=== PATIENT | female | born 1980 | race American Indian/Alaskan Native ===

== ENCOUNTER 2017-10-13 00:24 | Emergency (ER) | payer MEDICAID ==
[2017-10-13 00:56] VITALS: BMI 32.4
[2017-10-13 00:58] VITALS: RESP 14; TEMP 99; O2SAT 100
--- NOTE | 2017-10-13 01:10 | ED PDOC ---
Arrival/HPI - General Chief Complaint: ENT Problem Time Seen by Provider: 10/13/17 00:54 Historian: Patient - History of Present Illness Narrative History of Present Illness (Text): 10/13/17 01:09 36-year-old female presents today with a one-day history of sore throat. States she is having pain in the throat. States she feels as if she is losing her voice. Patient states she's been trying to cough up mucus that everything is dry. Patient states she feels as if her throat is dry. Patient denies sick contacts at home. Patient denies chest pain or shortness of breath. Patient denies cough. Patient states she's having some left ear pain. Patient denies abdominal pain and vomiting or diarrhea. No medications have been taken at home for pain. Patient states she is able to eat and drink but she has pain with swallowing. Patient denies any difficulty breathing or feeling of throat closing. No other complaints. Time/Duration: Other (1 day) Symptom Onset: Gradual Symptom Course: Worsening Quality: Aching, Burning Severity Level: 4 Past Medical History - Provider Review Nursing Documentation Reviewed: Yes - Travel History Have you recently traveled outside [place] w/in the past 3 mons?: No - Infectious Disease Hx of Infectious Diseases: None - Cardiac Hx Cardiac Disorders: No - Pulmonary Hx Respiratory Disorders: No - Neurological Hx Neurological Disorder: No - HEENT Hx HEENT Disorder: No - Renal Hx Renal Disorder: No - Endocrine/Metabolic Hx Endocrine Disorders: No - Hematological/Oncological Hx Blood Disorders: No - Integumentary Hx Dermatological Disorder: No - Musculoskeletal/Rheumatological Hx Musculoskeletal Disorders: No - Gastrointestinal Hx Gastrointestinal Disorders: Yes Hx Gall Bladder Disease: Yes - Genitourinary/Gynecological Hx Genitourinary Disorders: Yes Hx Reproductive Disorders: Yes (ectopic ) - Psychiatric Hx Psychophysiologic Disorder: No Hx Substance Use: No - Surgical History Hx Cholecystectomy: Yes Other/Comment: left fallopian tube removed - Anesthesia Hx Anesthesia: No Hx Anesthesia Reactions: No Hx Malignant Hyperthermia: No Family/Social History - Physician Review Nursing Documentation Reviewed: Yes Family/Social History: Unknown Family HX Smoking Status: Light Smoker < 10 Cigarettes Daily Hx Alcohol Use: Yes Frequency of alcohol use: Socially Hx Substance Use: No Allergies/Home Meds Allergies/Adverse Reactions: Allergies No Known Allergies Allergy (Verified 10/13/17 00:57) Home Medications: Home Meds Medication Instructions Recorded Confirmed Phentermine HCl [Adipex-P] 1 tab PO DAILY 10/02/15 10/02/15 Review of Systems - Review of Systems Constitutional: absent: Fatigue, Fevers ENT: Sore Throat, Other (right ear pain) Respiratory: absent: SOB, Cough Cardiovascular: absent: Chest Pain, Palpitations Gastrointestinal: absent: Abdominal Pain, Nausea, Vomiting Musculoskeletal: absent: Arthralgias Skin: absent: Rash, Pruritis Neurological: absent: Headache, Dizziness Psychiatric: absent: Anxiety, Depression Physical Exam Vital Signs Reviewed: Yes Vital Signs Temp Pulse Resp BP Pulse Ox 10/13/17 00:57 99 F 90 14 122/76 100 Temperature: Afebrile Blood Pressure: Normal Pulse: Regular Respiratory Rate: Normal Appearance: Positive for: Well-Appearing, Non-Toxic, Comfortable Pain Distress: None Mental Status: Positive for: Alert and Oriented X 3 - Systems Exam Head: Present: Atraumatic Conjunctiva: Present: Normal Ears: Present: Normal, NORMAL TM. No: Erythema Mouth: Present: Moist Mucous Membranes, Normal Lips, Normal Tounge, Normal Teeth. No: Drooling, Trismus Pharnyx: Present: ERYTHEMA, TONSILS ENLARGED (minimal bilateral tonsillar enlargement). No: EXUDATE, Peritonsilar Swelling, Uvular Deviation, Muffled/ Hoarse Voice, Strider, Soft Palate/Uvular Edema Nose (External): Present: Atraumatic Nose (Internal): Present: Normal Inspection, Clear Mucous Neck: Present: Normal Range of Motion, Trachea Midline. No: Lymphadenopathy Respiratory/Chest: Present: Clear to Auscultation, Good Air Exchange. No: Respiratory Distress, Accessory Muscle Use Cardiovascular: Present: Regular Rate and Rhythm, Normal S1, S2. No: Murmurs Neurological: Present: GCS=15, Speech Normal Skin: Present: Warm, Dry, Normal Color Psychiatric: Present: Alert, Oriented x 3 Medical Decision Making ED Course and Treatment: 10/13/17 01:08 Patient is nontoxic well appearing in no distress. Vital signs are stable able to tolerate p.o. fluids and solids Motrin 600 mg p.o. amoxicillin 500mg po Decadron 10 mg IM Patient reassessment: Patient feeling better after medications, vital signs stable. Moist mucous membranes. I advised follow up with primary care physician and ENT specialist within the next 2 days, advised to increase fluids take medications as prescribed and return if symptoms worsen persist or if new symptoms develop Patient verbalizes understanding of discharge instructions and need for immediate followup. all aspects of this case were discussed the attending of record. IMPRESSION; pharyngitis Motrin every 6 hours as needed for pain/fever reduction Increase fluids Amoxicillin 3 times daily x10 days Follow up primary care physician within the next 2 days Follow-up with the ENT specialist within the next 2 days Saltwater gargles, throat lozenges Return if symptoms worsen persist or if new symptoms develop: High fevers, increasing pain, difficulty breathing or swallowing, worsening swelling or if any other concerning symptoms develop. Disposition/Present on Arrival - Present on Arrival Any Indicators Present on Arrival: No History of DVT/PE: No History of Uncontrolled Diabetes: No Urinary Catheter: No History of Decub. Ulcer: No History Surgical Site Infection Following: None - Disposition Have Diagnosis and Disposition been Completed?: Yes Diagnosis: Pharyngitis Disposition: HOME/ ROUTINE Disposition Time: 01:07 Patient Plan: Discharge Condition: GOOD Discharge Instructions (ExitCare): Sore Throat, Adult (DC) Additional Instructions: Motrin every 6 hours as needed for pain/fever reduction Increase fluids Amoxicillin 3 times daily x10 days Follow up primary care physician within the next 2 days Follow-up with the ENT specialist within the next 2 days Saltwater gargles, throat lozenges Return if symptoms worsen persist or if new symptoms develop: High fevers, increasing pain, difficulty breathing or swallowing, worsening swelling or if any other concerning symptoms develop. Prescriptions: Amoxicillin 500 mg PO TID #30 tab Ibuprofen [Motrin] 600 mg PO Q6H PRN #20 tab PRN Reason: pain/fever reduction Referrals: [facility] [Outside] - Follow up with primary Esmer Hale MD [Staff Provider] - Follow up with primary Arturo Seymour DO [Staff Provider] - Follow up with primary Forms: [employer] (Portuguese), WORK NOTE
[2017-10-13 01:58] VITALS: BP 120/72; PULSE 92
== END 2017-10-13 01:58 | disposition home or self-care (01) ==
LOC: ED 00:24
DX: J02.9 Acute pharyngitis, unspecified (principal); F17.210 Nicotine dependence, cigarettes, uncomplicated
CPT/HCPCS: 96372; 99283; J1100